=== PATIENT | male | born 1985 | race African-American/Black ===

== ENCOUNTER 2020-11-12 11:33 | Inpatient (IN) | payer OTHER ==
[2020-11-12 12:06] VITALS: BMI 24.3
[2020-11-12] MEDS ORDERED: diazePAM 5 MG TABLET PO PRN (12:27)
[2020-11-12] MEDS ORDERED: IBUPROFEN 400 MG TABLET (FP) PO PRN (12:27)
[2020-11-12] MEDS ORDERED: MENTHOL/PHENOL 1 EACH UD MM PRN (12:27)
[2020-11-12] MEDS ORDERED: ACETAMINOPHEN 325 MG TABLET (FP) PO PRN ×2 (12:27)
[2020-11-12] MEDS ORDERED: MAGNESIUM HYDROX 2400MG/30ML ORAL SUSPENSION 30 ML CUP PO PRN (12:27)
[2020-11-12] MEDS ORDERED: METHOCARBAMOL 500 MG TABLET PO PRN (12:27)
[2020-11-12] MEDS ORDERED: BISMUTH SUBSALICYLATE 262 MG/15 ML BTL PO PRN (12:27)
[2020-11-12] MEDS ORDERED: MAG HYDROX/AL HYDROX/SIMETH 30 ML UNIT-DOSE CUP PO PRN (12:27)
[2020-11-12] MEDS ORDERED: ONDANSETRON *ODT* 4 MG TABLET SL PRN (12:27)
[2020-11-12] MEDS ORDERED: MAGNESIUM CITRATE 300 ML BOTTLE PO PRN (12:27)
[2020-11-12] MEDS: hydrOXYzine PAMOATE 25 MG CAPSULE (FP) PO SCH ×3 (13:41→22:05)
[2020-11-12] MEDS: PRENATAL VITAMINS W/ FOLIC ACID TABLET (FP) PO SCH (13:41)
[2020-11-12] MEDS: diazePAM 5 MG TABLET PO SCH ×3 (13:42→22:05)
[2020-11-12] MEDS ORDERED: ALBUTEROL SO4 HFA INHALER IH PRN (14:19)
[2020-11-12 15:47] LABS: HEMATOCRIT 43.5 % (35.4-49); HEMOGLOBIN 14.5 GM/dL (11.7-16.9); MCH 31.1 pg (25.7-33.7); MCHC 33.4 g/dl (32.0-35.9); MEAN CELL VOLUME 93.1 fl (80-96); MEAN PLT VOLUME 8.9 fl (7.5-11.1); PLATELET COUNT 211 10^3/uL (134-434); RBC 4.68 M/mm3 (4.00-5.60); RDW 13.4 % (11.9-15.9); WHITE BLOOD COUNT 6.1 K/mm3 (4.0-10.0)
[2020-11-12 15:51] LABS: ALBUMIN 4.5 g/dl (3.4-5.0); BLOOD UREA NITROGEN 16.5 mg/dL (7-18); CALCIUM 9.2 mg/dL (8.5-10.1)
[2020-11-12 15:54] LABS: CREATININE 1.1 mg/dL (0.55-1.3)
[2020-11-12 15:56] LABS: BILIRUBIN,TOTAL 0.7 mg/dL (0.2-1); TOT PROT 8.3 g/dl (6.4-8.2)
[2020-11-12] MEDS ORDERED: MELATONIN 5 MG TABLETS PO SCH (22:00)
[2020-11-12] MEDS: THIAMINE HCL 100 MG TABLET (FP) PO SCH (22:05)
[2020-11-12] MEDS: BENZTROPINE MESYLATE 1 MG TABLET PO SCH (22:05)
[2020-11-12] MEDS: OLANZapine 10 MG TABLET PO SCH (22:05)
[2020-11-13] MEDS: hydrOXYzine PAMOATE 25 MG CAPSULE (FP) PO SCH ×5 (05:33→22:19)
[2020-11-13] MEDS: diazePAM 5 MG TABLET PO SCH ×4 (05:34→22:19)
[2020-11-13] MEDS: PRENATAL VITAMINS W/ FOLIC ACID TABLET (FP) PO SCH (10:06)
[2020-11-13] MEDS: OLANZapine 10 MG TABLET PO SCH (22:19)
[2020-11-13] MEDS: THIAMINE HCL 100 MG TABLET (FP) PO SCH (22:19)
[2020-11-13] MEDS: BENZTROPINE MESYLATE 1 MG TABLET PO SCH (22:19)
[2020-11-14] MEDS: hydrOXYzine PAMOATE 25 MG CAPSULE (FP) PO SCH ×5 (05:16→22:08)
[2020-11-14] MEDS: diazePAM 5 MG TABLET PO SCH ×3 (05:16→22:08)
[2020-11-14] MEDS: PRENATAL VITAMINS W/ FOLIC ACID TABLET (FP) PO SCH (10:51)
[2020-11-14] MEDS: THIAMINE HCL 100 MG TABLET (FP) PO SCH (22:08)
[2020-11-14] MEDS: OLANZapine 10 MG TABLET PO SCH (22:08)
[2020-11-14] MEDS: BENZTROPINE MESYLATE 1 MG TABLET PO SCH (22:08)
[2020-11-15] MEDS: hydrOXYzine PAMOATE 25 MG CAPSULE (FP) PO SCH ×5 (05:52→22:32)
[2020-11-15] MEDS: diazePAM 5 MG TABLET PO SCH ×2 (05:53→17:28)
[2020-11-15] MEDS: PRENATAL VITAMINS W/ FOLIC ACID TABLET (FP) PO SCH (10:40)
[2020-11-15] MEDS: BENZTROPINE MESYLATE 1 MG TABLET PO SCH (22:32)
[2020-11-15] MEDS: THIAMINE HCL 100 MG TABLET (FP) PO SCH (22:32)
[2020-11-15] MEDS: OLANZapine 10 MG TABLET PO SCH (22:32)
[2020-11-16] MEDS: hydrOXYzine PAMOATE 25 MG CAPSULE (FP) PO SCH (05:19)
[2020-11-16] MEDS ORDERED: diazePAM 5 MG TABLET PO ONE (06:00)
[2020-11-16 09:01] VITALS: BP 102/69; PULSE 101; TEMP 97.1
== END 2020-11-16 09:37 | disposition home or self-care (01) | DRG 775 ==
LOC: YASAS 11:33 → Y3N 12:39
PROVIDERS: ADMIT Allergy & Immunology; ATTEND Allergy & Immunology
PROC: HZ2ZZZZ Detoxification Services for Substance Abuse Treatment (ICD-10-PCS; principal; 2020-11-12)
DX: F10.230 Alcohol dependence with withdrawal, uncomplicated (principal); F10.24 Alcohol dependence with alcohol-induced mood disorder; F41.1 Generalized anxiety disorder; F31.9 Bipolar disorder, unspecified; J45.909 Unspecified asthma, uncomplicated; Z86.59 Personal history of other mental and behavioral disorders; Z98.890 Other specified postprocedural states
CPT/HCPCS: 36415; 80053; 82947; 85027; 86780; 93005; 93010; C9803; U0003; U0005